=== PATIENT | male | born 1965 | race Caucasian/White ===

== ENCOUNTER → 2017-02-13 | Outpatient (CLI) | payer BC ==
--- NOTE | 2017-02-13 08:20 | US ---
EXAMINATION TYPE: US carotid duplex BILAT DATE OF EXAM: 02/13/2017 COMPARISON: NONE CLINICAL HISTORY: E78.5 Hyperlipidemia. no h/o stroke, baseline EXAM MEASUREMENTS: RIGHT: Peak Systolic Velocity (PSV) cm/sec ----- Right CCA: 77.9 ----- Right ICA: 74.9 ----- Right ECA: 71.8 ICA/CCA ratio: 1.0 RIGHT: End Diastole cm/sec ----- Right CCA: 21.2 ----- Right ICA: 22.3 ----- Right ECA: 20.3 LEFT: Peak Systolic Velocity (PSV) cm/sec ----- Left CCA: 70.2 ----- Left ICA: 70.2 ----- Left ECA: 76.6 ICA/CCA ratio: 1.0 LEFT: End Diastole cm/sec ----- Left CCA: 22.5 ----- Left ICA: 33.9 ----- Left ECA: 24.7 VERTEBRALS (direction of flow): Right Vertebral: Antegrade Left Vertebral: Antegrade Rhythm: normal until 1 episode of tachycardia happened, patient states his heart will race every day at certain times and makes him feel he has to cough Grayscale images show no significant focal plaque at the carotid bulb level bilaterally. Velocity amadeo surements in visualized portion of both internal carotid arteries is within normal limits. IMPRESSION: No hemodynamically significant stenosis seen in either internal carotid artery. Note i s made of one episode of arrhythmia, this is not known finding further investigation with altered mon itoring would be advised. Atrial fibrillation needs to BE excluded.
== END | disposition home or self-care (01) ==
LOC: RADUSWWP 07:37
PROVIDERS: ATTEND Family Medicine
DX: E78.5 Hyperlipidemia, unspecified (principal)
CPT/HCPCS: 93880

== ENCOUNTER 2018-11-01 19:43 | Emergency (ER) | payer BC, OTHER ==
[2018-11-01 20:00] VITALS: BP 156/95; PULSE 68; RESP 18; TEMP 98.7
== END 2018-11-01 20:30 | disposition home or self-care (01) ==
LOC: EC 19:43
DX: Z02.9 Encounter for administrative examinations, unspecified (principal)